=== PATIENT | male | born 1965 | race Caucasian/White ===

== ENCOUNTER 2016-08-04 14:15 | Emergency (ER) | payer OTHER ==
--- NOTE | 2016-08-14 00:45 | ER ---
ADMIT: 08/04/2016 RM/LOC: ER [facility] MR#: [id number] [place], [place] [id number] [address] [address] Emergency Room Report SEX: M AGE: 51 : 1965 DATE: 08/04/2016 CHIEF COMPLAINT: Left-sided chest pain and left shoulder pain. HISTORY OF PRESENT ILLNESS: The patient is a 51-year-old male, who has no history of coronary artery disease, who presents to the ER complaining of several weeks of left-sided shoulder pain. He first noticed it when he was out shooting on the range with his son using a hand gun. Since that time, he has had some pain in the left shoulder, worse when he moves certain directions or lifts the arm. He additionally states that he has had some discomfort onto his left anterior chest. He denies any shortness of breath, fevers, chills, nausea, or vomiting. SOCIAL HISTORY: The patient's social history is significant for his spouse who committed suicide last week. Since then, he has been very teary and understandably distraught. PAST MEDICAL HISTORY: Other than reconstruction of his left femur, left clavicle, he has no significant past medical history. MEDICATIONS: None. ALLERGIES: NONE. SOCIAL HISTORY: Denies smoking, drug, or alcohol use. PHYSICAL EXAMINATION: GENERAL: The patient is alert, oriented, does appear somewhat anxious and tearful. NECK: Supple. Airway is patent. HEART: Regular rate and rhythm. LUNGS: Clear to auscultation. He does have a deformity of left clavicle which is from a previous surgical repair. He does have some pain which is reproducible with movement of his left upper extremity. LUNGS: Clear to auscultation. ABDOMEN: Soft, nontender, and nondistended. EXTREMITIES: The patient has good pulses in all 4 extremities. SKIN: No skin lesions or rashes. LABORATORY AND X-RAY DATA: Chest x-ray shows nothing acute. CBC is normal. ADMIT: 08/04/2016 RM/LOC: [facility] MR#: [id number] [id number] [place] [address] Emergency Room Report SEX: M AGE: 51 : 1965 Chemistries normal other than potassium of 3.6. Troponin is less than 0.015. EKG shows sinus rhythm, rate of 89. No signs of ST-elevation or acute WA. Based on patient's history and physical exam, I do not believe he is having cardiac chest pain. He does have reproducible pain with movement of his left shoulder, and at this point, I believe he is safe to be discharged home. He is told that he should follow up with Dr. Vasquez and he is encouraged to use ibuprofen for the pain. DIAGNOSES: 1. Left shoulder pain. 2. Anxiety. Armani Hess MD/ jerman JOB #: [id number] CC: Armani Hess MD, Attending Physician Octavio Vasquez MD, Family Physician
== END 2016-08-04 17:38 | disposition home or self-care (01) ==
LOC: ER 14:15
DX: M25.512 Pain in left shoulder (principal); F41.9 Anxiety disorder, unspecified